=== PATIENT | female | born 1955 | race Caucasian/White ===

== ENCOUNTER 2025-10-29 06:26 | Day surgery (SDC) | payer OTHER, SELFPAY | END 2025-10-29 14:33 | disposition home or self-care (01) | LOC: GI 06:26 | PROVIDERS: ATTENDING PHYSICIAN Internal Medicine Gastroenterology | DX: Z12.11 Encounter for screening for malignant neoplasm of colon (principal); K52.9 Noninfective gastroenteritis and colitis, unspecified; K64.9 Unspecified hemorrhoids; K62.89 Other specified diseases of anus and rectum; D12.0 Benign neoplasm of cecum; D12.2 Benign neoplasm of ascending colon; D12.3 Benign neoplasm of transverse colon; K63.5 Polyp of colon; R12 Heartburn; K31.7 Polyp of stomach and duodenum; K22.70 Barrett's esophagus without dysplasia; K22.89 Other specified disease of esophagus; K29.50 Unspecified chronic gastritis without bleeding; Z80.0 Family history of malignant neoplasm of digestive organs | CPT/HCPCS: 45385; 45380; 43239; 88305; 88342 ==